=== PATIENT | male | born 1935 | race Caucasian/White ===

== ENCOUNTER 2021-01-17 16:52 | Emergency (ER) | payer MEDICARE, BC ==
[~2021-01-17] VITALS: Ht 167.6 cm; Wt 70.8 kg
[2021-01-17] MEDS ORDERED: AMLO5TAB4 PO (17:11)
[2021-01-17] MEDS ORDERED: WARFARIN (17:11)
[2021-01-17] MEDS ORDERED: WARF3TAB59 PO (17:15)
[2021-01-17] MEDS ORDERED: MESA800T PO (17:15)
[2021-01-17] MEDS: IV NORMAL SALINE 1000 ML BAG IV ONE (17:19)
[2021-01-17 17:25] LABS: HEMATOCRIT 40.2 % (36.7-47.1); MEAN CORPUSCULAR HEMOGLOBIN 27.2 uug (23.8-33.4); MEAN CORPUSCULAR VOLUME 82.5 fL (73.0-96.2); PLATELET COUNT (AUTO) 209 K/uL (152-348)
[2021-01-17 17:27] LABS: CARBON DIOXIDE 29 mmol/L (21-32); CHLORIDE 105 mmol/L (98-107); CREATININE 1.7 mg/dL (0.6-1.3); GLUCOSE 127 mg/dL (74-106); POTASSIUM 4.1 mmol/L (3.5-5.1); UREA NITROGEN, BLOOD 30 mg/dL (7-18)
[2021-01-17 17:32] LABS: ALANINE AMINOTRANSFERASE 67 U/L (16-63); ALKALINE PHOSPHATASE 119 U/L (50-136); ASPARTATE AMINOTRANSFERASE 26 U/L (15-37); BILIRUBIN,DIRECT 0.2 mg/dL (0.0-0.2); BILIRUBIN,TOTAL 0.6 mg/dL (0.2-1.0); TOTAL PROTEIN, SERUM 7.1 g/dL (6.4-8.2)
--- NOTE | 2021-01-17 17:57 | NUR ---
Road tested pt, ambulates w/o dizziness, states he "feel(s) fine." Notified
--- NOTE | 2021-01-17 18:08 | NUR ---
Removed IV intact, site okay, bandaged. Gave pt d/c instructions, pt verbalized understanding. Pt getting ride home.
[2021-01-17 18:14] VITALS: BP 134/91
== END 2021-01-17 18:16 | disposition home or self-care (01) ==
LOC: ER 16:52
DX: R55 Syncope and collapse (principal); E86.0 Dehydration; Z79.01 Long term (current) use of anticoagulants; Z79.899 Other long term (current) drug therapy; I10 Essential (primary) hypertension; R91.8 Other nonspecific abnormal finding of lung field
CPT/HCPCS: 36415; 70030-TC; 70450; 71045; 85025; 85730; 93005; A4663

== ENCOUNTER 2021-02-04 15:32 | Emergency (ER) | payer MEDICARE, BC ==
[~2021-02-04] VITALS: Ht 406.4 cm; Wt 63.5 kg
[~2021-02-04 15:32] MED LIST: AMLO5TAB4 PO; MESA800T PO; WARF3TAB59 PO
--- NOTE | 2021-02-04 15:47 | NUR ---
DR PASCUAL AT BEDSIDE FOR EVAL.
[2021-02-04] MEDS ORDERED: LET TOPICAL SOLUTION 8 ML UDC ONE (15:53)
[2021-02-04] MEDS ORDERED: LET TOPICAL SOLUTION 8 ML UDC TP ONE (16:00)
[2021-02-04] MEDS ORDERED: LIDOCAINE 1%-EPI 1:100,000 20 ML VIAL IJ ONE (16:00)
[2021-02-04] MEDS ORDERED: NEOMY/BACITRA/POLYMYXIN B OINT UD PACKET TP ONE ×2 (16:43→16:45)
--- NOTE | 2021-02-04 16:56 | NUR ---
Patient discharged to home in stable condition. Written and verbal after care instructions given. Patient verbalizes understanding of instructions. Stressed follow up or return to ER for worsening s/s. Addendum: 02/04/21 at 1656 by RAMON PT WALKS IN STEADY GAIT. PT ACCOMPANIED BY .
== END 2021-02-04 16:57 | disposition home or self-care (01) ==
LOC: ER 15:32
DX: S01.21XA Laceration without foreign body of nose, initial encounter (principal); W01.198A Fall on same level from slipping, tripping and stumbling with subsequent striking against other object, initial encounter; Y93.01 Activity, walking, marching and hiking; Y92.017 Garden or yard in single-family (private) house as the place of occurrence of the external cause; S02.2XXA Fracture of nasal bones, initial encounter for closed fracture; K51.90 Ulcerative colitis, unspecified, without complications; Z85.528 Personal history of other malignant neoplasm of kidney; Z86.718 Personal history of other venous thrombosis and embolism; Z79.01 Long term (current) use of anticoagulants; Z86.711 Personal history of pulmonary embolism; R03.0 Elevated blood-pressure reading, without diagnosis of hypertension
CPT/HCPCS: 70450; 70486; A4663